=== PATIENT | female | born 1990 | race Caucasian/White ===

== ENCOUNTER 2023-09-19 09:49 | Day surgery (SDC) | payer OTHER ==
[~2023-09-19] VITALS: Ht 165.1 cm; Wt 113.7 kg
[~2023-09-19 09:49] MED LIST: BIRTH CONTROL; CEPH500 PO; CIPR500 PO; ESCI10 PO; IBUP800 PO; MULVITMINE PO; Macrobid 100 M100 MG PO; ONDA4 PO; OXYACE5T PO
[2023-09-19] MEDS ORDERED: Percocet 5-3251 EACH PO (10:43)
--- NOTE | 2023-09-19 11:31 | NUR ---
09/19/23 1131 Tesfaye Mackey 30ML OF ROPIVACAINE 0.5% MIXED AND VERIFIED WITH 0.15ML OF EPI (1MG/ML) TO MAKE ROPIVACAINE 0.5% WITH EPI 1:200,000 FOR INJECTION AT THE OPSITE BY DR AYALA.
[2023-09-19 14:32] VITALS: BP 154/85
--- NOTE | 2023-09-19 17:26 | NUR ---
09/19/23 1726 Elliot Garcia P/T TENSE AND FREQUENTLY MOVING ARM IN PACU.
--- NOTE | 2023-09-19 17:49 | NUR ---
09/19/231748 Elliot Garcia P/T REPORTED 8-10/10 PAIN IN SDU. SHE APPEARED CALM AND RELAXED FOLLOWING DILAUDID ADMINISTRATION (FLACC 0-10/15). . PT ALSO BEGAN TO FALL ASLEEP FOR BRIEF PERIODS. PT'S O2 DROPPED TO 80'S BREIFLY WHILE NAPPING ON MULTIPLE OCCASIONS. PT DENIED SYMPTOMS OF HYPOXIA--INCLUDING SHORTNESS OF BREATH OR DIZZINESS--AND NONE WERE OBSERVED. PT WAS GIVEN INCENTIVE SPIROMETER AND INSTRUCTED IN ITS USE. SHE WAS INSTRUCTED TO SLEEP IN RECLINER. DR. MONTELONGO WAS CONSULTED AND APPROVED D/C IN CURRENT CONDITION. PT'S DRESSING WAS INITIALLY CDI IN SDU. IMMEDIATELY PRIOR TO D/C A STRIP OF BRIGHT RED DRAINAGE WAS OBSERVED SOAKING THROUGH DRESSING. DR. AYALA WAS CONSULTED. DRESSING WAS REWRAPPED WITH ADDITIONAL ABD PADS, PER DR. AYALA'S ORDERS. PT WAS INSTRUCTED TO NOT TAKE ASPRIN FOR THREE DAYS, PER INSTRUCTIONS FROM DR. AYALA RELAYED BY CIRCULATING ANTHONY PENA.
== END 2023-09-19 15:50 | disposition home or self-care (01) ==
LOC: ORSCSDS 09:49
PROVIDERS: Podiatrist Foot & Ankle Surgery
PROC: 0QSJ04Z Reposition Right Fibula with Internal Fixation Device, Open Approach (ICD-10-PCS; principal; 2023-09-19 11:15)
PROC: 0QSG04Z Reposition Right Tibia with Internal Fixation Device, Open Approach (ICD-10-PCS; principal; 2023-09-19 11:15)
DX: S82.851A Displaced trimalleolar fracture of right lower leg, initial encounter for closed fracture (principal); S93.431A Sprain of tibiofibular ligament of right ankle, initial encounter; W01.0XXA Fall on same level from slipping, tripping and stumbling without subsequent striking against object, initial encounter; E66.9 Obesity, unspecified; Z68.41 Body mass index [BMI] 40.0-44.9, adult
CPT/HCPCS: A9270; C1713; C1769; C1776; J0171; J0690; J1100; J1170; J1885; J2250; J2405; J2704; J2795; J3010; J7120